=== PATIENT | male | born 1980 | race African-American/Black ===

== ENCOUNTER 2016-10-21 23:25 | Emergency (ER) | payer OTHER ==
[~2016-10-21] VITALS: Ht 167.6 cm; Wt 81.6 kg
--- NOTE | 2016-10-21 23:35 | NUR ---
PT BIBRA AT WORK FOR "SEIZURE WHILE AT [employer]"; POSTICTAL. MILD ORAL TRAUMA "NON COMPLIANT WITH MEDS" PT AOX4 RR EVEN AND UNLABORED. NO SOB NOTED NAD NOTED. NO NVD AT THIS TIME. PT GOWNED AND PLACED ON MONITOR WAITING FOR MD DE SOUZA. PT PLACED ON SEIZURE PRECAUTION. PER RA PLACED IV ON LEFT AC 18G
[2016-10-21] MEDS ORDERED: phenytoin SODIUM IV 250 MG/5 ML VIAL IV ONE ×2 (23:36→23:37)
[2016-10-21] MEDS ORDERED: IV SET PRIMARY PUMP SET 1 EA INFUS.SET MC ONE (23:37)
[2016-10-21] MEDS ORDERED: IV NS 0.9% 100 ML IV ONE (23:38)
[2016-10-21] MEDS ORDERED: IV FILTER 5 MICRON 1 EA INFUS.SET MC ONE (23:38)
--- NOTE | 2016-10-21 23:54 | NUR ---
XRAY AT BEDSIDE
--- NOTE | 2016-10-21 23:56 | NUR ---
PT TO CT.
[2016-10-22] MEDS ORDERED: phenytoin SODIUM IV 1,000 MG in IV NS 0.9% 100 ML IV ONE ×2
--- NOTE | 2016-10-22 00:10 | NUR ---
PT RETURNED FROM CT. LAB AT BEDSIDE FOR BLOOD DRAW.
[2016-10-22 00:27] LABS: BASOPHILS % (AUTO) 0.5 % (0.0-2.0); EOSINOPHILS # (AUTO) 0.1 /CMM (0.0-0.7); EOSINOPHILS % (AUTO) 1.9 % (0.0-6.0); HEMATOCRIT 42 % (39-51); HEMOGLOBIN 13.9 g/dL (13.5-17.5); LYMPHOCYTES % (AUTO) 21.3 % (20.0-44.0); MEAN CORPUSCULAR HEMOGLOBIN 31 PG (26.0-33.0); MEAN CORPUSCULAR HGB CONC 33 g/dl (31.0-36.0); MEAN CORPUSCULAR VOLUME 94 fL (80-96); MONOCYTES # (AUTO) 0.5 /CMM (0.1-1.30); MONOCYTES % (AUTO) 9.7 % (2.0-12.0); NEUTROPHILS # (AUTO) 3.2 /CMM (1.8-8.9); NEUTROPHILS % (AUTO) 66.6 % (43.0-81.0); PLATELET COUNT (AUTO) 144 /CMM (150-450); RDW COEFFICIENT OF VARIATION 14.2 (11.5-15.0); RED BLOOD CELL COUNT(AUTO) 4.43 MIL/uL (4.5-6.0); WHITE BLOOD COUNT (AUTO) 4.8 K/uL (4.3-11.0)
[2016-10-22 00:39] LABS: CARBON DIOXIDE 27 mmol/L (21-32); CHLORIDE 103 mmol/L (98-107); CREATININE 1.2 mg/dL (0.6-1.3); GLUCOSE 106 mg/dL (74-106); POTASSIUM 4.4 mmol/L (3.5-5.1); SODIUM SERUM 138 mmol/L (136-145); UREA NITROGEN, BLOOD 13 mg/dL (7-18)
[2016-10-22 00:44] LABS: ALANINE AMINOTRANSFERASE 97 U/L (12-78); ALBUMIN 3.8 g/dL (3.4-5.0); ALCOHOL, BLOOD < 3 mg/dL (0-0); ALKALINE PHOSPHATASE 82 U/L (46-116); ASPARTATE AMINOTRANSFERASE 87 U/L (15-37); BILIRUBIN,DIRECT 0.1 mg/dL (0.0-0.2); BILIRUBIN,TOTAL 0.5 mg/dL (0.2-1.0); TOTAL PROTEIN, SERUM 7.8 g/dL (6.4-8.2)
--- NOTE | 2016-10-22 01:30 | NUR ---
IV removed. Catheter intact and site benign. Pressure and 4x4 applied to site. No bleeding noted. Patient discharged to home in stable condition. Written and verbal after care instructions given. Patient verbalizes understanding of instruction. ambulatory with a steady gait. no active seizures noted during time here. instructed pt not to drive. pt verbalize understanding.
[2016-10-22 01:31] VITALS: BP 153/110
== END 2016-10-22 01:31 | disposition home or self-care (01) ==
LOC: ER 23:27
DX: G40.909 Epilepsy, unspecified, not intractable, without status epilepticus (principal); R41.82 Altered mental status, unspecified; Z91.14 Patient's other noncompliance with medication regimen
CPT/HCPCS: 36415; 70450; 71010; 80048; 80076; 82962; 85025; 93005; 96365; 99285; A4606; G0480; J1165 ×2; J7030; Z7610